=== PATIENT | male | born 1985 | race Caucasian/White ===

== ENCOUNTER 2017-03-05 22:59 | Emergency (ER) | payer SELFPAY ==
--- NOTE | 2017-03-09 19:09 | ER ---
ADMIT: 03/05/2017 RM/LOC: ER [facility] MR#: [id number] [address] [id number] VINCE JOHNORD [place] , Emergency Room Report SEX: M AGE: 32 : 1985 DATE: 03/05/2017 HISTORY OF PRESENT ILLNESS: The patient is a 32-year-old male, who was brought here by Law Enforcement for medical clearance to nursing home and alleged alcohol intoxication. Per Law Enforcement, allegedly, the patient made some disturbance, but they all deny any altercation or any fight or any trauma and the patient was arrested and was brought to the ER. Allegedly, the alcohol level in the Breathalyzer was 0.3. The patient refused to have vital signs checked, but was in no pain or distress, sitting in the bed, trying to avoid the question, but after questioning a few times, he would answer it. The patient agreed that I can do a focused physical exam for medical clearance, and getting pulse of the patient with a watch, it was about 98 per minute. PHYSICAL EXAMINATION: HEENT/NECK: There are no signs of trauma. Pupils are 3 mm, reactive to light bilaterally. NEURO: Normal. NECK: Soft. No midline tenderness or step-offs. CHEST: Clear bilaterally. HEART: Normal heart sounds. ABDOMEN: Soft. EXTREMITIES: There are no signs of trauma in the extremities and that we have normal range of motion in all the extremities. The patient has EtOH smell. The patient denied using any drugs. The patient is stable to be discharged to nursing home to be followed up by the nursing home physician and primary care doctor as needed. Dao Baxter MD/ zacarias JOB #: [id number] CC: Dao Baxter MD, Attending Physician
== END 2017-03-05 23:20 | disposition home or self-care (01) ==
LOC: ER 22:59
DX: F10.129 Alcohol abuse with intoxication, unspecified (principal)